=== PATIENT | female | born 1995 | race Caucasian/White ===

== ENCOUNTER 2019-12-20 08:23 | Outpatient (CLI) | payer OTHER, SELFPAY ==
--- NOTE | 2019-12-20 08:45 | US_ITS ---
WS: [id number] OB ultrasound, 12/20/2019 Clinical Data: SUPERVISION OF NORMAL Comparison: None. Findings: There is a single interuterine . The cervix measures 4.19 cm and it is closed. heart r ate is 176 beats per minute. There is a yolk sac measuring 0.45 cm.. The crown-rump length measured 2.0 cm and the gestational sac 1.95 cm. The estimated gestational age 8w4d is with an PAO of approximately 07/27/2020. The left ovary measured 2.45 cm x 2.47 cm x 3.85 cm. and is entirely cystic The right ovary measured 2.75 cm x 3.10 cm x 3.21 cm. There is a small 0.8 cm cyst. No ovarian cyst or masses are seen. US/US OB <= 14 weeks fetus [id number] Impression: 1. Single interuterine . 2. Estimated gestational age of 8w4d with an PAO of 07/27/2020. 3. heart rate 176 beats per minute.
== END 2019-12-20 08:24 | disposition home or self-care (01) ==
LOC: RAD 08:35
PROVIDERS: Family Provider Obstetrics & Gynecology; Visit Provider Family Medicine
DX: Z34.81 Encounter for supervision of other normal pregnancy, first trimester (principal)
CPT/HCPCS: 76801

== ENCOUNTER 2020-03-12 07:15 | Outpatient (CLI) | payer OTHER, MEDICAID, SELFPAY ==
--- NOTE | 2020-03-12 07:31 | US_ITS ---
WS: [id number] ULTRASOUND OB COMPLETE TECHNIQUE: Complete ultrasound. CLINICAL INFORMATION: ANATOMY SCAN COMPARISON: None. FINDINGS: Cervix measures 3.6 cm Single interuterine gestation is identified with cephalic presentation. Placenta is anterior. Placenta grade 0. Normal amniotic fluid volume. cardiac activity: 131 BPM. AGA: 20w4d PAO by ultrasound: 07/26/2020 Estimated weight: 361 g BDP: 4.8 cm = 20w3d HC: 18.1 cm = 20w4d AC: 15.5 cm = 20w5d FEMUR LENGTH: 3.3 cm = 20w3d Anatomic survey: Anatomic survey is normal. Normal stomach. Kidneys and bladder are normal. Normal 3 vessel cord. Norm al 3 vessel cord insertion. Normal 4 chamber heart. Normal spine. Intracranial contents are normal. N ormal posterior fossa and cisterna magna. Possible small chorioplexus cyst measuring 6 mm. US/US OB >= 14 weeks fetus [id number] IMPRESSION: 1. Single intrauterine with visualized cardiac activity. AGA 20w4d w ith PAO 07/26/2020. 2. Placenta is anterior. No evidence of abruption or previa. 3. anatomic survey is normal. Possible small choroid plexus cyst measuri ng 6 mm. 4. Normal amniotic fluid volume.
== END 2020-03-12 07:16 | disposition home or self-care (01) ==
LOC: RAD 07:16
PROVIDERS: Family Provider Obstetrics & Gynecology; PCP Nurse Practitioner Family; Visit Provider Family Medicine
DX: Z34.80 Encounter for supervision of other normal pregnancy, unspecified trimester (principal); Z36.89 Encounter for other specified antenatal screening; Z3A.20 20 weeks gestation of pregnancy
CPT/HCPCS: 76805

== ENCOUNTER 2020-07-06 15:00 | Outpatient (CLI) | payer OTHER, MEDICAID, SELFPAY ==
--- NOTE | 2020-07-06 | US_ITS ---
WS: [id number] ULTRASOUND BREAST LEFT TECHNIQUE: Ultrasound left breast focused area of concern. CLINICAL INFORMATION: PT DIRECT LUMP COMPARISON: None. FINDINGS: Ultrasound left breast in the area of palpable concern in the 9:00 position. In the area of concern, 9:00 position, 4 cm from the nipple is a well-circumscribed hypoechoic solid nodule measuring 2.0 x 0 .6 x 1.4 cm with vascularity. Findings most likely represent fibroadenoma in a patient this age. This can be further evaluated with ultrasound-guided biopsy for confirmation after . Alternatively, this could be followed up in 6 months with ultrasound to assess stability. US/US breast LT limited* [id number] IMPRESSION: BI-RADS 3 PROBABLY BENIGN FOLLOW UP: SEE REPORT
== END 2020-07-06 15:01 | disposition home or self-care (01) ==
LOC: RAD 15:04
PROVIDERS: PCP Nurse Practitioner Family; Visit Provider Family Medicine
DX: N63.25 Unspecified lump in the left breast, overlapping quadrants (principal)
CPT/HCPCS: 76642

== ENCOUNTER 2020-07-23 06:21 | Inpatient (IN) | payer OTHER, MEDICAID, SELFPAY ==
[2020-07-23] VITALS (65 sets, daily range): BP systolic 0–121; BP diastolic 0–78; PULSE 59–118; RESP 16–18; TEMP 36.8–37.3; O2SAT 81–100; BMI 26.6
[2020-07-23] MEDS: lactated ringers 1,000 ML 999 ML IV ×2 (07:15→08:16)
[2020-07-23 07:23] LABS: Basophils % 0.3 %; Eosinophils % 0.3 %; Hemoglobin 12.1 g/dL (11.5-15.3); Lymphocytes # 1.9 10^3/uL (0.8-4.8); Mean Corpuscular HGB Conc 33.6 g/dL (30.0-36.0); Mean Corpuscular Volume 95.2 fL (81-99); Mean Platelet Volume 10.1 fL (7.4-10.4); Monocytes # 0.6 10^3/uL (0.2-0.9); Monocytes % 5.2 %; Neutrophils # 9.29 10^3/uL (1.8-7.7); Neutrophils % 77.7 %; Nucleated Red Blood Cells % 0 %; Platelet Count 224 10^3/cmm (130-400); Red Blood Count 3.78 10^6/uL (4.1-5.3); Red Cell Distribution Width 13.8 % (12.1-15.1); White Blood Count 11.9 10^3/uL (4.0-10.0)
--- NOTE | 2020-07-23 07:37 | PM.HP ---
Providers/Chief Complaint Primary Care Provider: LAUREL DE LA CRUZ Chief Complaint: contractions History of Present Illness Marybeth Blount is a 25 year old at 39.2 weeks gestation by 8-week ultrasound inconsistent with LMP. Her is complicated by prior large , anxiety on Celexa, migraines, anemia. The patient states that she woke up at approximately 3:30 AM on the morning of 07/23/2020 with contractions. They were every 3 to 5 minutes and continue to get stronger, so she presented to labor and delivery. In L&D she was 5 cm dilated with a bulging bag of water. The patient has had some mild bloody show. Patient denies any fevers, chest pains, shortness of breath. She had been feeling well prior to this. Medications/Allergies Home Medications Medication Instructions Recorded Confirmed Last Taken Type bupropion HCl 100 mg tablet,12 hr 50 mg PO DAILY tab 12/24/19 12/24/19 Unknown History sustained-release buspirone 10 mg tablet 10 mg PO BID 12/24/19 12/24/19 Unknown History multivitamin 1 tab PO DAILY 12/24/19 12/24/19 Unknown History Allergies Allergy/AdvReac Type Severity Reaction Status Date / Time No Known Allergies Allergy Verified 12/24/19 04:21 PFSH Acute PFSH: Surgical History (Updated 12/24/19 @ 04:23 by Dora Ruiz RN) [place] teeth extracted (~2013) Family History (Updated 12/24/19 @ 04:24 by Dora Ruiz RN) Grandfather Hypertension PATERNAL Family/Other Patient denies medical problems diabetes mellitus, heart disease, stroke, hypercholesterolemia, thryoid problems, breast cancer, ovarian cancer, uterine cancer,or colon cancer.) Social History (Updated 12/24/19 @ 04:24 by Dora Ruiz RN) Smoking and tobacco status: never smoked Alcohol intake: never Vitals/I&O/Wt Last Vital Signs Pulse 69 07/23/20 06:37 BP 106/55 07/23/20 06:37 Weight last 48 hrs Weight 180 lb Weight 0.317 oz Weight 180 lb Physical Exam Narrative: EXAM NARRATIVE: General: Alert and oriented x3 Eyes: Pupils equal round and reactive to light and accommodation Mouth: Mucous membranes moist, pharynx non-erythematous Cardiac: Regular rate and rhythm without murmurs Lungs: Clear to auscultation bilaterally without wheezes, crackles or rhonchi Abdomen: Soft, mild tenderness with contractions, fundus consistent with gestational age Extremities: Trace edema in the bilateral lower extremities Data : 07/23/20 06:50 A&P Assessment and plan (1) Intrauterine : Status: Acute (2) Anxiety and depression: Status: Acute Additional A&P Information The patient is doing well at this time. She is justin every 3 to 5 minutes. heart tones are in the mid 140s with moderate variability and good accelerations. She is now 7 cm dilated. She would like to have an epidural. She is being bolused for this. At this time we will proceed with routine intrapartum care. The patient is GBS negative. Attestations Medical Necessity Statement*: Patient be here for greater than 2 midnights due to routine intrapartum and management of labor and delivery. 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
--- NOTE | 2020-07-23 07:50 | ANES.PREANE2 ---
Pre-Anesthetic Assessment Pre-Anesthetic Assessment: Height/Weight: Height 1.75 m Weight 81.647 kg Pulse BP Pulse Ox 77 104/61 100 07/23/20 08:47 07/23/20 08:47 07/23/20 08:45 Preop Diagnosis: IUP Proposed Procedure: epidural Familial anesthetic complications: none Was Beta Lan taken within 24 hours: N/A Last intake: NPO > 8 hrs Social: Social History: No alcohol and No tobacco Exam: Pre-Anes Outpt Exam: alert, oriented x 3, clear to auscultation bilaterally and regular rate & rhythm Airway: Cervical ROM: WNL MP: 2 Dentition: Full Anesthetic Plan: ASA status: 2 Anesthesia: Regional (specify below) (epidrual) Risk of > 500 ml blood loss (7ml/kg in children): No Meds/Allergies Current Medications: Current Medications Generic Name Dose Route Start Last Admin Trade Name Freq PRN Reason Stop Dose Admin Ropivacaine 200 mg in 100 mls @ 13 mls/hr 07/23/20 06:45 07/23/20 08:19 Naropin Premix EPIDURAL 13 mls/hr .[id number] KEO Administration Lactated Ringer's 1,000 mls @ 999 m ls/hr 07/23/20 06:41 07/23/20 08:16 Lactated Ringers IV 999 mls/hr .Q1H1M PRN Administration Per L&D Rescitati on Protocol [facility] Anesthesia PFSH: Surgical History (Updated 12/24/19 @ 04:23 by Dora Ruiz RN) [place] teeth extracted (~2013) Family History (Updated 12/24/19 @ 04:24 by Dora Ruiz RN) Grandfather Hypertension PATERNAL Family/Other Patient denies medical problems diabetes mellitus, heart disease, stroke, hypercholesterolemia, thryoid problems, breast cancer, ovarian cancer, uterine cancer,or colon cancer.) Social History (Updated 12/24/19 @ 04:24 by Dora Ruiz RN) Smoking and tobacco status: never smoked Alcohol intake: never Female Reproductive History: Date of last menstrual period: 10/22/19 : 2 Data Anesthesia CBC & Chem 7: 07/23/20 06:50 Other Labs: Laboratory Results - last 48 hr 08/31/20 06:50 WBC 11.9 H RBC 3.78 L Hgb 12.1 Hct 36.0 L MCV 95.2 MCH 32.0 MCHC 33.6 RDW 13.8 Plt Count 224 MPV 10.1 Neut % (Auto) 77.7 Lymph % (Auto) 16.0 [place] % (Auto) 5.2 Eos % (Auto) 0.3 Baso % (Auto) 0.3 Neut # (Auto) 9.29 H Lymph # (Auto) 1.9 [place] # (Auto) 0.6 Eos # (Auto) 0.0 Baso # (Auto) 0.0 Nucleated RBC % (auto) 0 Nucleated RBCs # 0.0 Cardiac Studies: No Data to Display
--- NOTE | 2020-07-23 08:20 | ANES.PROC ---
Anesthesia Procedures Procedure/Date: 07/23/20 Epidural: Time Out Performed: Yes Consents Signed: Procedure Consent Consent: requested by attending/covering physician, from patient, risks and benefits reviewed and patient agrees to proceed Lumbar Level: L3-L4 Epidural position: sitting Epidural procedure: sterile prep of area, 1% lidocaine to numb the area, 18 g needle, negative for paresthesia passed, neg for paresthesia, test dose given, 1.5% xylocaine 1:200k epi (3), 0.2% Ropivacaine bolus ml, placed PCEA, no systemic response, sterile dressing applied, L.U.D. no apparent complications and 0.2% Ropiavacaine @ mls/hr (13)
[2020-07-23] MEDS: dextrose 5%-lactated ringers 1,000 ML 125 ML IV (09:25)
[2020-07-23] MEDS: oxytocin 30 UNIT/500 ML BAG IV (09:47)
--- NOTE | 2020-07-23 11:20 | P.PCNOB_ITS ---
Delivery Note: Date of delivery: July 23, 2020 Pre-delivery diagnoses: 1. Intrauterine at 39.2 weeks gestation 2. Anxiety on Celexa 20 mg 3. Migraines Post-delivery diagnoses: 1. Intrauterine status post spontaneous vaginal route at 39.2 weeks gestation 2. Anxiety 3. Migraines 4. Delivery of healthy female with Apgars of 9 and 9 Procedure: Spontaneous vaginal delivery Op report anesthesia: Epidural Delivering Physician: Myron Kaufman MD Estimated blood loss (mL): 125 Findings: 1. Intact placenta with a peripheral umbilical cord insertion site 2. Healthy infant female with Apgars of 9 and 9 Pre-Delivery Course: The patient began justin at approximately 3:30 AM on 07/23/2020. She presented to labor and delivery triage secondary to contractions. She was noted to be 5 cm dilated at that time. The patient continue to make change on her own and received a laboring epidural. SROM took place at 8:54 AM. She was 8 cm dilated and started to stall with contractions spacing out every 5 to 7 minutes. IV Pitocin was added for augmentation of labor. The patient was complete by 10:35 AM on 07/23/2020. Delivery: Patient began pushing at 10:44 AM on 07/23/2020. The patient pushed well and the infant descended well. The delivered in the OA position at 11:05 AM on 07/23/2020. The left shoulder was the anterior shoulder and it delivered with ease. The rest of the delivered with steady pushing. The was crying immediately upon delivery. The mouth and nose were bulb suctioned by myself. Lightly stained meconium fluid was noted. The was placed on the mother's chest where the nurses were waiting to care for her. The cord was clamped and cut by myself approximately 1 minute after delivery. Cord blood was obtained. The cord was then drained of blood and traction was placed on the umbilical cord. The placenta delivered without complication at 11:10 AM. The placenta was noted to be intact. IV Pitocin was bolused. The cervix was inspected and no lacerations were noted. The vaginal wall was inspected and an abrasion was noted on the left lower vaginal wall. This did not need suturing. The patient's bleeding is slowing down well at this time. We will watch for any signs of concerning bleeding. Uterus is currently firm and midline. Currently both the mother and are doing very well. 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
--- NOTE | 2020-07-23 12:35 | PC.NURSE ---
still holding baby skin to skin, baby will latch to breast for a couple sucks and then pull away and cry, mother declines assistance when offered
[2020-07-23] MEDS: benzocaine-menthol 78 gm Canister 1 SPRAY TOPICAL (15:02)
[2020-07-23] MEDS: docusate sodium 100 mg Capsule PO (19:41)
[2020-07-24 00:16] LABS: Hematocrit 32.7 % (37.0-47.0); Hemoglobin 11.1 g/dL (11.5-15.3); Mean Corpuscular HGB Conc 33.9 g/dL (30.0-36.0); Mean Corpuscular Hemoglobin 32.5 pg (28.0-34.0); Mean Corpuscular Volume 95.6 fL (81-99); Mean Platelet Volume 10.2 fL (7.4-10.4); Platelet Count 199 10^3/cmm (130-400); Red Blood Count 3.42 10^6/uL (4.1-5.3); White Blood Count 11.1 10^3/uL (4.0-10.0)
[2020-07-24] MEDS: lanolin oint 7 gm 1 APPLIC TOPICAL (00:30)
[2020-07-24 01:15] VITALS: BP 101/63; PULSE 77; RESP 18
[2020-07-24 05:30] VITALS: BP 114/65; PULSE 82; RESP 17; TEMP 36.8
--- NOTE | 2020-07-24 07:17 | ANE.PACU2 ---
Inpatient post-anesthesia follow up: Airway intact: Yes Vital signs: Temperature 98.2 F Pulse Rate 82 Respiratory Rate 17 Blood Pressure 114/65 Pulse Oximetry 98 Oxygen Delivery Me thod Room Air Oxygen Flow Rate Fraction of Inspir ed Oxygen Hydration adequate: Yes Nausea and vomiting: No Pain level: 1 Mental status: Baseline Additional Comments: No signs of infection at epidural site, no numbness/weakness in legs, no headaches, urinating ok
--- NOTE | 2020-07-24 08:22 | P.DS_ITS ---
Discharge Providers Date of Admission: 07/23/20 06:21 Date of Discharge: July 24, 2020 Attending Provider at Admission: Myron Kaufman MD Attending Provider at Discharge: Myron Kaufman MD Primary Care Provider: LAUREL DE LA CRUZ Diagnoses at Discharge Discharge Diagnosis (1) Intrauterine : Status: Acute (2) Anxiety and depression: Status: Acute Reason for Visit Reason for Visit: contractions Hospital Course Hospital Course: The patient began justin at approximately 3:30 AM on 07/23/2020. She presented to labor and delivery triage secondary to contractions. She was noted to be 5 cm dilated at that time. The patient continue to make change on her own and received a laboring epidural. SROM took place at 8:54 AM. She was 8 cm dilated and started to stall with contractions spacing out every 5 to 7 minutes. IV Pitocin was added for augmentation of labor. The patient was complete by 10:35 AM on 07/23/2020. The patient began pushing at 10:44 AM on 07/23/2020. The patient pushed well and the infant descended well. The delivered in the OA position at 11:05 AM on 07/23/2020. The left shoulder was the anterior shoulder and it delivered with ease. The rest of the infant delivered with steady pushing. The infant was crying immediately upon delivery. The mouth and nose were bulb suctioned by myself. Lightly stained meconium fluid was noted. The was placed on the mother's chest where the nurses were waiting to care for her. The cord was clamped and cut by myself approximately 1 minute after delivery. Cord blood was obtained. The cord was then drained of blood and traction was placed on the umbilical cord. The placenta delivered without complication at 11:10 AM. The placenta was noted to be intact. IV Pitocin was bolused. The cervix was inspected and no lacerations were noted. The vaginal wall was inspected and an abrasion was noted on the left lower vaginal wall. This did not need suturing. The patient's bleeding is slowing down well at this time. We will watch for any signs of concerning bleeding. Uterus is currently firm and midline. the patient has done very well without any concerning findings. Her bleeding is decreasing well. Her pain is very little. The patient is breast- feeding, voiding, passing gas and tolerating food by mouth. Currently she is doing well. She would like to be discharged home today. At this point I feel that she is stable to do so. Routine instructions were given. Plan for follow-up at 6 weeks or sooner if needed. Physical Exam Narrative: EXAM NARRATIVE: General: Alert and oriented x3 Cardiac: Regular rate and rhythm without murmurs Lungs: Clear to auscultation bilaterally without wheezes, crackles or rhonchi Abdomen: Soft, mild tenderness with contractions, fundus consistent with gestational age Extremities: Trace edema in the bilateral lower extremities Urinary Catheter Management^: Bella: Cath Placed During This Visit: yes, but has since been removed by the nurse Reason for Continuing Indwelling Catheter: Decision to DC Catheter Urinary Catheter Date of Insertion: 07/23/20 Urinary Catheter Time of Insertion: 08:15 Date Urinary Catheter Removed: 07/23/20 Time Urinary Catheter Discontinued: 10:45 Discharge Data Data Completed and Pending: Labs from last 24 hours 07/23/20 07/23/20 06:50 00:00 WBC 11.1 H RBC 3.42 L Hgb 12.1 11.1 L Hct 36.0 L 32.7 L MCV 95.2 95.6 MCH 32.0 32.5 MCHC 33.6 33.9 RDW 14.0 Plt Count 199 MPV 10.2 Vitals: Last Vital Signs Temp 98.2 F 07/24/20 05:30 Pulse 82 07/24/20 05:30 Resp 17 07/24/20 05:30 BP 114/65 07/24/20 05:30 Pulse Ox 98 07/23/20 18:59 Discharge Plan Discharge Patient Disposition: Home Condition: Stable Prescriptions: New ibuprofen 800 mg Tablet 800 mg PO TID Qty: 60 RF: 0 Continued buspirone 10 mg tablet 10 mg PO BID RF: 0 bupropion HCl [Wellbutrin SR] 100 mg tablet sustained-release 12 hr 50 mg PO DAILY RF: 0 multivitamin Tablet 1 tab PO DAILY RF: 0 Discharge Orders: Discharge Order (Routine); Ordered 07/24/20 Ordered By: Myron Kaufman Referrals: Myron Kaufman MD [Physician] - 6 Weeks Discharge Diet: Regular Discharge Activity: Increase activity as tolerated Activity Restrictions/Additional Instructions: Nothing per vagina for 6 weeks. No baths or swimming for 6 weeks. Showers are okay. If you have any concerns or complications prior to your 6-week appointment, please call for sooner appointment. 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
[2020-07-24] MEDS: prenatal vitamin Capsule 1 CAP PO (08:37)
[2020-07-24] MEDS: docusate sodium 100 mg Capsule PO (08:38)
[2020-07-24 11:45] VITALS: BP 110/75; PULSE 78
[2020-07-24 15:15] VITALS: BP 117/68; PULSE 64; RESP 18; TEMP 36.9; O2SAT 98
== END 2020-07-24 15:22 | disposition home or self-care (01) | DRG 807 ==
LOC: OPOB 06:31 → OBGYN 06:33 → OPOB 11:28 → OBGYN 11:28
PROVIDERS: Admitting Provider Family Medicine; PCP Nurse Practitioner Family; Visit Provider Family Medicine
DX: O99.344 Other mental disorders complicating childbirth (principal); Z37.0 Single live birth; F41.8 Other specified anxiety disorders; Z3A.39 39 weeks gestation of pregnancy; O77.0 Labor and delivery complicated by meconium in amniotic fluid
CPT/HCPCS: 12345; 36415; 51702; 59025; 59409; 85025; 85027; 98960; 99211; J2795

== ENCOUNTER 2020-09-10 12:38 | Outpatient (CLI) | payer OTHER, MEDICAID, SELFPAY ==
--- NOTE | 2020-09-10 12:56 | US_ITS ---
WS: [id number] ULTRASOUND-GUIDED LEFT BREAST BIOPSY CLINICAL INFORMATION: BREAST LUMP OR MASS COMPARISON: None. FINDINGS: The procedure including risks, benefits, and complications were discussed with the patient who agreed to proceed. Using sterile technique patient was prepped and draped in the usual sterile fashion. Aft er 1% lidocaine utilizing real-time ultrasound guidance 5 18-gauge cores were obtained of the left br east lesion at the 9 o'clock position. No biopsy clip was placed. No immediate complications. Pathology demonstrates : Breast, left, 9 O' clock, 4 cm from nipple, biopsy: -Lactating adenoma. -No malignancy identified. US/[place] [id number] IMPRESSION: 1. Uncomplicated ultrasound-guided left breast biopsy. 2. The pathology demonstrates benign lactating adenoma. No malignancy identifi ed. Findings are benign. BI-RADS: 2-Benign FOLLOW UP: Age 41 RECOMMEND ANNUAL SCREENING MAMMOGRAPHY AGE 41
== END 2020-09-10 12:39 | disposition home or self-care (01) ==
PROVIDERS: PCP Nurse Practitioner Family; Visit Provider Family Medicine
DX: D24.2 Benign neoplasm of left breast (principal)
CPT/HCPCS: 19083; 88305

== ENCOUNTER → 2022-12-02 13:59 | Outpatient (BNVA) | payer MEDICAID, SELFPAY | PROVIDERS: PCP Nurse Practitioner Family; Visit Provider Nurse Practitioner Women's Health | DX: Z30.9 Encounter for contraceptive management, unspecified (principal); Z30.430 Encounter for insertion of intrauterine contraceptive device | CPT/HCPCS: 81025 ==